=== PATIENT | male | born 1985 | race Caucasian/White ===

== ENCOUNTER 2022-06-26 03:24 | Emergency (ER) | payer SELFPAY ==
[~2022-06-26] VITALS: Ht 165.1 cm; Wt 81.6 kg
[2022-06-26 03:44] VITALS: BP 134/68
--- NOTE | 2022-06-26 03:58 | NUR ---
MARIA GUADALUPE SMITH TO CHAIR C
--- NOTE | 2022-06-26 04:42 | NUR ---
PATIENT BIB [facility]. PATIENT EXAMINED BY DR. VASQUEZ. PATIENT MEDICALLY CLEARED AND RELEASED IN CUSTODY IN STABLE CONDITION. ORIGINAL PRE-BOOK FORM GIVEN TO OFFICER MARIAN, #[id number].
== END 2022-06-26 04:42 ==
LOC: MED 03:24
DX: J45.909 Unspecified asthma, uncomplicated
CPT/HCPCS: 99283